=== PATIENT | female | born 1965 | race Caucasian/White ===

== ENCOUNTER 2017-02-02 16:05 | Emergency (ER) | payer BC, MEDICAID ==
--- NOTE | 2017-02-02 16:45 | Emergency Department Record ---
History of Present Illness - General Chief Complaint: Dizziness Stated Complaint: DIZZINESS,ELEVATED BLOOD PRESSURE Time Seen by Provider: 02/02/17 16:09 Source: Patient, RN notes reviewed Mode of Arrival: Ambulatory - History of Present Illness Initial Comments: dizziness ,spinning sensation and balance off and this started today at 11:30 am. Spinning sensation better now and BP is up and she had this happen once before. No headache and no pain anywhere. cough and she feels better now with the spinning sensation and it last 30 minutes Onset/Timin -: Hour(s) Timing: Sudden onset Description: Sense of movement History of Same: Yes History of Trauma: No Severity: Moderate Improves With: Nothing Worsens With: Nothing Associated Symptoms: Denies other symptoms - Amari Coma Scale Eye Response: (4) Open spontaneously Motor Response: (6) Obeys commands Verbal Response: (5) Oriented Amari Total: 15 - Related Data Previous Rx's Medication Instructions Recorded Azithromycin 250 mg PO DAILY #6 tablet 02/02/17 Meclizine HCl [Antivert] 25 mg PO Q8H #20 tablet 02/02/17 Allergies Allergy/AdvReac Type Severity Reaction Status Date / Time No Known Allergies Allergy PT UNSURE Verified 02/02/17 16:16 OF REACTION Travel Screening - Travel/Exposure Within Last 30 Days Have you traveled within the last 30 days?: No - Travel/Exposure Within Last Year Have you traveled outside the [place] in the last year?: No - Additonal Travel Details Have you been exposed to anyone with a communicable illness?: No - Travel Symptoms Symptom Screening: None Review of Systems Reviewed: No additional complaints except as noted below Constitutional: Reports: As per HPI. Denies: Chills, Fever, Malaise, Night sweats, Weakness, Weight change Eyes: Reports: As per HPI. Denies: Eye discharge, Eye pain, Photophobia, Vision change ENT: Reports: As per HPI. Denies: Congestion, Dental pain, Ear pain, Epistaxis , Hearing loss, Throat pain Respiratory: Reports: As per HPI. Denies: Cough, Dyspnea, Hemoptysis, Stridor, Wheezes Cardiovascular: Reports: As per HPI. Denies: Arrhythmia, Chest pain, Dyspnea on exertion, Edema, Murmurs, Orthopnea, Palpitations, Paroxysmal nocturnal dyspnea, Rheumatic Fever, Syncope Endocrine: Reports: As per HPI. Denies: Fatigue, Heat or cold intolerance, Polydipsia, Polyuria Gastrointestinal: Reports: As per HPI. Denies: Abdominal pain, Constipation, Diarrhea, Hematemesis, Hematochezia, Melena, Nausea, Vomiting Genitourinary: Reports: As per HPI. Denies: Abnormal menses, Discharge, Dyspareunia, Dysuria, Frequency, Hematuria, Incontinence, Retention, Urgency Musculoskeletal: Reports: As per HPI. Denies: Arthralgia, Back pain, Gout, Joint swelling, Myalgia, Neck pain Skin: Reports: As per HPI. Denies: Bruising, Change in color, Change in hair/ nails, Lesions, Pruritus, Rash Neurological: Reports: As per HPI, Vertigo. Denies: Abnormal gait, Confusion, Headache, Numbness, Paresthesias, Seizure, Tingling, Tremors, Weakness Psychiatric: Reports: As per HPI. Denies: Anxiety, Auditory hallucinations, Depression, Homicidal thoughts, Suicidal thoughts, Visual hallucinations Hematological/Lymphatic: Reports: As per HPI. Denies: Anemia, Blood Clots, Easy bleeding, Easy bruising, Swollen glands Past Medical History - SOCIAL HISTORY Smoking Status: Current every day smoker Alcohol Use: Occasional Drug Use: None - RESPIRATORY Hx Respiratory Disorders: No - CARDIOVASCULAR Hx Cardio Disorders: No - NEURO Hx Neuro Disorders: No - GI Hx GI Disorders: No - Hx Genitourinary Disorders: No - ENDOCRINE Hx Endocrine Disorders: No - MUSCULOSKELETAL Hx Musculoskeletal Disorders: No - PSYCH Hx Psych Problems: Yes Hx Anxiety: Yes Hx Depression: Yes - HEMATOLOGY/ONCOLOGY Hx Hematology/Oncology Disorders: No Family Medical History Any Significant Family History?: Yes Hx Cancer: Father Hx Diabetes: Father, Grandparents Physical Exam - General General Appearance: Alert, Oriented x3, Cooperative, No acute distress - Head Head exam: Normal inspection - Eye Eye exam: Normal appearance, PERRL Pupils: Normal accommodation - ENT ENT exam: Normal exam, Mucous membranes moist, Normal external ear exam, Normal orophraynx, TM's normal bilaterally Ear exam: Normal external inspection. negative: External canal tenderness Nasal Exam: Normal inspection. negative: Discharge, Sinus tenderness Mouth exam: Normal external inspection, Tongue normal Teeth exam: Normal inspection. negative: Dental caries Throat exam: Normal inspection. negative: Tonsillar erythema, Tonsillar exudate - Neck Neck exam: Normal inspection, Full ROM. negative: Tenderness - Respiratory Respiratory exam: Normal lung sounds bilaterally. negative: Respiratory distress - Cardiovascular Cardiovascular Exam: Regular rate, Normal rhythm, Normal heart sounds - GI/Abdominal GI/Abdominal exam: Soft, Normal bowel sounds. negative: Tenderness - Rectal Rectal exam: Deferred - exam: Deferred - Extremities Extremities exam: Normal inspection, Full ROM, Normal capillary refill. negative: Tenderness - Back Back exam: Reports: Normal inspection, Full ROM. Denies: Muscle spasm, Rash noted, Tenderness - Neurological Neurological exam: Alert, Normal gait, Oriented X3, Reflexes normal - Psychiatric Psychiatric exam: Normal affect, Normal mood - Skin Skin exam: Dry, Intact, Normal color, Warm Course Vital Signs 02/02/17 16:18 Temperature 98.4 F Pulse Rate 88 Respiratory 16 Rate Blood Pressure 181/96 Pulse Ox 96 - Reevaluation(s) Reevaluation #1: patient feels better now but she wanted her thyroid checked. 02/02/17 16:58 Medical Decision Making - Data Complexity MDM Data: Labs Ordered and/or Reviewed, X-Ray Ordered and/or Reviewed (chest xray negative,) - Lab Data Result diagrams: 02/02/17 17:00 02/02/17 17:00 Disposition Clinical Impression: Bronchitis BPV (benign positional vertigo) Qualifiers: Laterality: unspecified laterality Qualified Code(s): H81.10 - Benign paroxysmal vertigo, unspecified ear Disposition: Home, Self-Care Condition: (1) Good Instructions: Acute Bronchitis (ED), Benign Paroxysmal Positional Vertigo (ED) Additional Instructions: follow up with family to have her BP checked. Prescriptions: Azithromycin 250 mg PO DAILY #6 tablet Meclizine HCl [Antivert] 25 mg PO Q8H #20 tablet Forms: Patient Portal Access Time of Disposition: 17:03 Quality - Quality Measures Quality Measures: N/A - Blood Pressure Screening Does Patient Have Any of the Following: No Blood Pressure Classification: Hypertensive Reading Systolic Measurement: 181 Diastolic Measurement: 96 Screening for High Blood Pressure: < First Hypertensive BP, F/U Documented > [ [id number]] First Hypertensive Follow-up Interventions: Referral to alternative/primary care provider.
[2017-02-02] MEDS: MECLIZINE 25 MG TABLET PO ONE (16:54)
[2017-02-02 17:03] LABS: BASO % 0.5 % (0-6); EOS % 4.3 % (0-6); HEMATOCRIT 43.3 % (35.0-47.0); HEMOGLOBIN 15.1 gm/dl (11.6-16.0); LYMPH % 27.2 % (16-45); MEAN CELL VOLUME 94.1 fl (81-97); MEAN CORPUSCULAR HEMOGLOBIN 32.8 pg (27-33); MEAN CORPUSCULAR HGB CONC 34.9 g/dl (32-36); MEAN PLATELET VOLUME 8.7 fl (7.4-10.4); PLATELET COUNT 294 K/uL (130-400); RED CELL DISTRIBUTION WIDTH 12.8 % (11.5-14.5); WHITE BLOOD COUNT W/O DIFF 9.6 K/uL (4.2-12.2)
[2017-02-02 17:12] LABS: BLOOD UREA NITROGEN 7 mg/dL (6-20); CREATININE 0.5 mg/dL (0.5-0.9); EST GLOMERULAR FILTRATION RATE > 60 mL/min
[2017-02-02 17:15] LABS: GLUCOSE,RANDOM 119 mg/dL (74-109)
[2017-02-02 17:28] LABS: THYROID STIMULATING HORMONE 2.18 uIU/mL (0.270-4.20)
[2017-02-02] MEDS: CLONIDINE HCL 0.1 MG TABLET PO ONE (17:49)
--- NOTE | 2017-02-03 10:31 | CT SCAN REPORT ---
EXAM: HEAD CT WITHOUT CONTRAST HISTORY: ACUTE DIZZINESS, HYPERTENSION. TECHNIQUE: Contiguous axial images from the cerebral convexities to the foramen magnum were obtained without IV contrast. Comparison: None. Encounter: Initial. Hand dominance: Right. FINDINGS: The brain volume is normal. No acute intracranial hemorrhage, mass effect or midline shift. No CT evidence of acute infarct. The ventricles, basal cisterns and sulci are within normal limits. Moderate mucosal thickening in the left maxillary sinus, sphenoid sinuses, ethmoid air cells, and frontal sinuses. Mild mucosal thickening right maxillary sinus. The osseous structures and soft tissues are unremarkable. IMPRESSION: 1. NO ACUTE INTRACRANIAL PROCESS. 2. MUCOSAL THICKENING IN ALL OF THE PARANASAL SINUSES WHICH MAY REFLECT CHRONIC SINUSITIS. JOB NUMBER: [id number] MTDD
--- NOTE | 2017-02-03 11:09 | RADIOLOGY REPORT ---
EXAM: CHEST, TWO VIEWS HISTORY: ACUTE NONPRODUCTIVE COUGH AND VERTIGO. TECHNIQUE: Two views of the chest were obtained. Comparison: None. FINDINGS: 4 mm calcified granuloma left lower lung. The cardiac silhouette, diaphragm, and osseous structures are unremarkable. IMPRESSION: NO ACUTE INTRATHORACIC PROCESS. JOB NUMBER: [id number] MTDD
== END 2017-02-02 18:30 | disposition home or self-care (01) ==
LOC: ER 16:05
DX: J20.9 Acute bronchitis, unspecified (principal); H81.10 Benign paroxysmal vertigo, unspecified ear; R03.0 Elevated blood-pressure reading, without diagnosis of hypertension; F17.210 Nicotine dependence, cigarettes, uncomplicated
CPT/HCPCS: 70450; 71020; 80048; 84443; 85025; 93005; 93010; 99284